=== PATIENT | female | born 1955 | race Native Hawaiian/Other Pacific Islander ===

== ENCOUNTER 2023-08-26 16:35 | Emergency (ER) | payer OTHER ==
[~2023-08-26] VITALS: Ht 175.3 cm; Wt 153.3 kg
[~2023-08-26 16:35] MED LIST: CELEXA10 MG PO
[2023-08-26 16:36] VITALS: BP 127/62; TEMP 98
[2023-08-26 16:59] LABS: PLATELET COUNT 331 K/uL (152-353)
[2023-08-26] MEDS ORDERED: TYLENOL325 MG PO (18:51)
[2023-08-26] MEDS ORDERED: ARTIFICIAL TEARS1 % OPTH (18:52)
[2023-08-26] MEDS ORDERED: AMLODIPINE BESYLATE PO (18:52)
[2023-08-26] MEDS ORDERED: ASPERCREME LIDOCA41 TOP (18:54)
[2023-08-26] MEDS ORDERED: ASPIRIN 81 LOW81 MG PO (18:54)
[2023-08-26] MEDS ORDERED: LIPITOR40 MG PO (18:55)
[2023-08-26] MEDS ORDERED: BACLOFEN10 MG PO (18:56)
[2023-08-26] MEDS ORDERED: BUSPIRONE15 MG PO (18:56)
[2023-08-26] MEDS ORDERED: CARV12.5 PO (18:57)
[2023-08-26] MEDS ORDERED: GABA300C2 PO ×2 (18:59→19:00)
[2023-08-26] MEDS ORDERED: ENEMA RE (18:59)
[2023-08-26] MEDS ORDERED: FAMO20TA4 PO (18:59)
[2023-08-26] MEDS ORDERED: GLIMEPIRIDE PO (19:00)
[2023-08-26] MEDS ORDERED: GLUCAGON EMERGEN1 MG INJ (19:02)
[2023-08-26] MEDS ORDERED: HALO50IN4 IM (19:03)
[2023-08-26] MEDS ORDERED: [UNRECOGNIZED DRUG - CODE] RE (19:03)
[2023-08-26] MEDS ORDERED: INSULIN LI100 UNIT/1 SC (19:04)
[2023-08-26] MEDS ORDERED: LACTULOSE10 GM/15 M PO (19:05)
[2023-08-26] MEDS ORDERED: KLOR-CON M2020 MEQ PO (19:05)
[2023-08-26] MEDS ORDERED: FURO20TA67 PO (19:06)
[2023-08-26] MEDS ORDERED: LEVEMIR FL100 UNIT/M SC (19:06)
[2023-08-26] MEDS ORDERED: POLY GLYCOL3350 M1 PO (19:07)
[2023-08-26] MEDS ORDERED: OXYC5TAB53 PO (19:08)
[2023-08-26] MEDS ORDERED: LACTOBACILLU PO (19:08)
[2023-08-26] MEDS ORDERED: [UNRECOGNIZED DRUG - OTHER] OPTH (19:09)
[2023-09-09] MEDS ORDERED: GABA300C2 PO ×2 (10:23)
[2023-09-09] MEDS ORDERED: MIRALAX 17GM PAK PO (10:23)
[2023-09-09] MEDS ORDERED: COREG 6.25MG TAB PO (10:23)
[2023-09-09] MEDS ORDERED: NORVASC 5MG TAB PO (10:23)
[2023-09-09] MEDS ORDERED: Atorvastatin Calcium PO (10:23)
[2023-09-09] MEDS ORDERED: SERT50TA PO (10:23)
[2023-09-09] MEDS ORDERED: INSU-1996 SC (10:23)
[2023-09-09] MEDS ORDERED: FURO20TA67 PO (10:23)
[2023-09-09] MEDS ORDERED: ASPI81TA4 PO (10:23)
[2023-09-09] MEDS ORDERED: MEGE40TA32 PO (10:23)
[2023-09-09] MEDS ORDERED: BACL10TA4 PO (10:23)
[2023-09-09] MEDS ORDERED: ACET-206 PO (10:23)
[2023-09-09] MEDS ORDERED: LACTSYP31 PO (10:23)
[2023-09-09] MEDS ORDERED: HALO50IN4 IM (10:23)
[2023-09-09] MEDS ORDERED: FAMOTIDINE20 MG PO (10:23)
[2023-09-09] MEDS ORDERED: GLIM2TAB PO (10:23)
[2023-09-09] MEDS ORDERED: ALUMSUS6 PO (10:23)
== END 2023-08-26 17:28 | disposition still patient (30) ==
LOC: ED 16:35
PROVIDERS: Family Medicine
DX: Z04.6 Encounter for general psychiatric examination, requested by authority (principal); F41.9 Anxiety disorder, unspecified; J44.9 Chronic obstructive pulmonary disease, unspecified; E11.9 Type 2 diabetes mellitus without complications; E78.00 Pure hypercholesterolemia, unspecified; I10 Essential (primary) hypertension; I69.954 Hemiplegia and hemiparesis following unspecified cerebrovascular disease affecting left non-dominant side; Z20.822 Contact with and (suspected) exposure to COVID-19
CPT/HCPCS: 36415; 80053; 85027; 87635; 93005; 99283; U0003